=== PATIENT | male | born 1960 | race Caucasian/White ===

== ENCOUNTER 2021-05-31 11:51 | Outpatient (CLI) | payer BC, OTHER, SELFPAY ==
--- NOTE | ~2021-05-31 | MMUS_ITS ---
EXAMINATION: MM diagnostic mammo unilat RT, US breast RT complete HISTORY: Right breast lump TECHNIQUE: Right craniocaudal and bilateral MLO images. Spot right MLO, MLO and cc views. CAD analysi s was submitted and interpreted. High resolution complete right breast ultrasound on 4 quadrants and subareolar area was performed. COMPARISON: None BREAST PARENCHYMAL COMPOSITION: The breasts are heterogeneously dense, which may obscure small masses . FINDINGS: MAMMOGRAPHIC FINDINGS: There is asymmetric prominent right gynecomastia, measuring up to approximately 5.5 cm transverse, up to 4.1 cm depth and 4.1 cm vertical dimension. Patient's mass or architectural distortion, malignant calcification, skin thickening or retraction is detected. ULTRASOUND: Heterogeneous fibroglandular stroma is identified. No suspicious mass or suspicious shadowing is dete cted. IMPRESSION: 1. Right gynecomastia 2. No mammographic evidence of malignancy BI-RADS Category 2: Benign finding(s). Reviewed, dictated and finalized at location A. IMPRESSION: 1. Right gynecomastia 2. No mammographic evidence of malignancy BI-RADS Category 2: Benign finding(s).
== END 2021-05-31 11:52 | disposition home or self-care (01) ==
LOC: ANHIMG 11:52
PROVIDERS: PCP Family Medicine; Visit Provider Physician Assistant Medical
DX: N63.10 Unspecified lump in the right breast, unspecified quadrant (principal)
CPT/HCPCS: 76641; 77065

== ENCOUNTER 2021-11-30 08:04 | Outpatient (RCR) | payer BC, OTHER, SELFPAY | END 2022-02-28 23:59 | disposition home or self-care (01) | LOC: ANHVASCINF 08:04 | PROVIDERS: PCP Family Medicine; Visit Provider Internal Medicine Nephrology | DX: E87.1 Hypo-osmolality and hyponatremia (principal) | CPT/HCPCS: 36415; 82533; 96372; J0834 ==

== ENCOUNTER 2022-01-05 10:44 | Outpatient (CLI) | payer BC, OTHER, SELFPAY ==
--- NOTE | ~2022-01-05 | US_ITS ---
EXAMINATION: US venous doppler [facility] DATE: 01/05/2022 11:24 INDICATION: Venous thrombosis. TECHNIQUE: Grayscale ultrasound images without and with compression and Doppler ultrasound images of the bilateral lower extremity veins were obtained. COMPARISON: 03/05/2019 FINDINGS: The visualized portions of right common femoral vein, profunda (deep) femoral vein, femoral vein, pop liteal vein, posterior tibial veins, peroneal veins, lesser saphenous vein and greater saphenous vein outflow remain patent. The visualized portions of left common femoral vein, profunda femoral vein, femoral vein, popliteal v ein, posterior tibial veins, peroneal veins, lesser saphenous vein and greater saphenous vein outflow remain patent. IMPRESSION: 1. No deep venous thrombosis in either lower limb. Reviewed, dictated and finalized at location B.
== END 2022-01-05 10:45 | disposition home or self-care (01) ==
PROVIDERS: PCP Family Medicine; Visit Provider Physician Assistant Medical
DX: Z86.718 Personal history of other venous thrombosis and embolism (principal)
CPT/HCPCS: 93970

== ENCOUNTER 2022-04-12 09:13 | Outpatient (RCR) | payer BC, OTHER, SELFPAY ==
[2022-04-12 10:13] LABS: Cortisol Baseline 7.06 ug/dL
== END 2022-07-11 23:59 | disposition home or self-care (01) ==
LOC: ANHVASCINF 09:13
PROVIDERS: PCP Family Medicine; Visit Provider Internal Medicine Nephrology
DX: E87.1 Hypo-osmolality and hyponatremia (principal); R94.7 Abnormal results of other endocrine function studies
CPT/HCPCS: 36415; 82533; 96372; J0834

== ENCOUNTER 2022-04-28 07:23 | Outpatient (CLI) | payer BC, OTHER, SELFPAY ==
--- NOTE | ~2022-04-28 | CT_ITS ---
EXAMINATION: CT abdomen w con DATE: 04/28/2022 07:50 INDICATION: Adrenal cortical hypofunction. TECHNIQUE: Computed tomography (CT) of the abdomen and pelvis was performed with 100 cc Omnipaque 350 intravenous contrast. The dose-length product was 991.45 mGy-cm. Automated exposure control and iter ative reconstruction technique were employed. COMPARISON: None. FINDINGS: There is dependent atelectasis of the lung bases. Heart size normal. No significant pleural or pericardial effusion. There is a tiny subcentimeter cyst of the right hepatic lobe. The spleen, p ancreas, adrenal glands and kidneys are unremarkable. Gallbladder is present. There is atherosclerosi s without aneurysm. There is possible bladder wall thickening, although only partially visualized. No lymphadenopathy. Severe lumbar spondylosis. IMPRESSION: 1. Normal adrenal glands. 2: Possible bladder wall thickening, although only partially visualized. Correlate for symptoms of cy stitis. Reviewed, dictated and finalized at location A. IMPRESSION: 1. Normal adrenal glands. 2: Possible bladder wall thickening, although only partially visualized. Correl ate for symptoms of cystitis.
[2022-04-28 07:44] LABS: Estimated Glomerular Filt Rate > 60
== END 2022-04-28 07:24 | disposition home or self-care (01) ==
PROVIDERS: PCP Family Medicine; Visit Provider Internal Medicine Nephrology
DX: E27.40 Unspecified adrenocortical insufficiency (principal)
CPT/HCPCS: 74160; Q9967

== ENCOUNTER 2023-05-23 07:25 | Outpatient (CLI) | payer BC, OTHER, SELFPAY ==
[2023-05-23 09:01] LABS: Cortisol Baseline 8.31 ug/dL
== END 2023-05-23 07:26 | disposition home or self-care (01) ==
LOC: ANHOUTPT 07:26
PROVIDERS: PCP Family Medicine; Visit Provider Internal Medicine
DX: E87.1 Hypo-osmolality and hyponatremia (principal); Z68.42 Body mass index [BMI] 45.0-49.9, adult
CPT/HCPCS: 36415; 82533; 96372

== ENCOUNTER 2025-05-19 10:15 | Outpatient (CLI) | payer MEDICARE, OTHER, SELFPAY ==
--- NOTE | ~2025-05-19 | XR_ITS ---
XR lumbar spine 2-3V Indication: M47.816 - Spondylosis without myelopathy or radiculopathy... Comparison: None Findings: Remote compression fracture of L2 with loss of height 20%, no acute fracture or subluxation. Moderate to severe loss of disc height throughout. Soft tissues unremarkable Impression: No acute abnormality. Reviewed, dictated and finalized at location P. Impression: No acute abnormality.
--- OUTSIDE RECORDS SUMMARY | 2025-05-19 11:18 | XMS_ITS | Clinical Summary ---
Author Organization [facility] Address [facility] [place] [address] Care Team Providers Care Glass Worker Name Role Phone Unavailable Primary Care Provider Unavailabl e Social History Tobacco Use Types Packs/Day Years Used Date Smoking Tobacco: Never Assessed Sex and Gender Information Value Date Recorded Sex Assigned at Not on file Legal Sex Male 8:37 PM CDT Gender Identity Not on file Sexual Orientation Not on file Plan of Treatment Health Maintenance Due Date Last Done Comments Colorectal Cancer Screening Colonoscopy (10 Years) 1959 Hepatitis C 1977 DTaP, Tdap and Td Vaccines ( 1 - Tdap) 1978 Pneumococcal Vaccine: 50+ Ye ars (1 of 1 - PCV) 2009 Zoster Vaccines (1 of 2) 2009 COVID-19 Vaccine ( - 2023-2 5 season) 2025 Influenza Adult (#1) 2025 RSV Immunization or 60+ Years (1 - 1-dose 75+ series) 2034 Meningococcal B Vaccine Aged Out No l onger eligible based on patient's age to complete this topic Meningococcal Vaccine Aged Out No saurav devang eligible based on patient's age to complete this topic RSV Immunizations Under 20 Months Aged Out No longer eligible based on patient's age to complete this topic
--- OUTSIDE RECORDS SUMMARY | 2025-05-19 11:18 | XMS_ITS | Encounter Summary ---
Author Organization [facility] Address [address] [facility] [place] [address] Care Team Providers Care Informatics Developer Name Role Phone Sander Hutchinson MD Primary Care Provider [phone] Encounter Details Date Type Department Care Team (Late st Contact Info) Description 12/10/2019 Lab Requisition [facility] DermPath Lab [address] [facility], [place] [id number] Gloria Leonard DO [address] [facility] [address] [place] [address] Social History Tobacco Use Types Packs/Day Years Used Date Smoking Tobacco: Never Smokeless Tobacco: Never Alcohol Use Standard Drinks/Week Comments Yes 0 (1 standard drink = 0.6 oz pur e alcohol) Sex and Gender Information Value Date Recorded Sex Assigned at Not on file 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 Gender Identity Not on file Sexual Orientation Not on file documented as of this encounter Plan of Treatment Not on file documented as of this encounter Procedures Procedure Name Priority Date/Time Associated Diagnosis Comments DERMATOPATHOLOGY Routine 12/09/2019 12:0 0 AM CDT documented in this encounter Results * DERMATOPATHOLOGY (12/09/2019 12:00 AM CDT) Case Report Dermatopathology Report Case: [id number] Authorizing Provider: Gloria Leonard DO Collected: 12/09/2019 12:00 AM Ordering Location: [facility] DermPath Lab Received: 12/10/2019 11:28 AM Pathologist: Lary Quinonez MD Specimens: A) - Skin, left methodist B) - Skin, left post auricular C) - Skin, right low back 0 2:18 PM T DERMATOPATHOLOGY LABORATORY Final Diagnosis Specimen A. SKIN, left methodist: HYPERPLASTIC (HYPERTROPHIC) ACTINIC KERATOSIS; EXTENDING TO THE BASE OF THE SPECIMEN (L57.0) (see microscopic description and comment) Specimen B. SKIN, left post auricular: BENIGN VERRUCOUS KERATOSIS (L82.1) HEALING SKIN CHANGES (L90.5) Specimen C. SKIN, right low back: HYPERPLASTIC (HYPERTROPHIC) ACTINIC KERATOSIS (L57.0) 0 2:18 PM T DERMATOPATHOLOGY LABORATORY at 1418 CDT Clinical History A: AK vs NMSC, non-healing. B-C: R/O NMSC vs ISK, non-healing. 0 2:18 PM T DERMATOPATHOLOGY LABORATORY Gross Description Specimen A: Received is one formalin filled container labeled with the patient's name and designated left methodist. The specimen consists of a shave measuring 0u1f2of. Jar 0. Specimen B: Received is one formalin filled container labeled with the patient's name and designated left post auricular. The specimen consists of a shave measuring 7r3x0tb. Jar 0. Specimen C: Received is one formalin filled container labeled with the patient's name and designated right low back. The specimen consists of a shave measuring 5f7p5if. Jar 0. 0 2:18 PM T DERMATOPATHOLOGY LABORATORY Microscopic Description Specimen A. SKIN, left methodist: There is hyperkeratosis alternating with parakeratosis. There is focal epidermal hyperplasia with disorderly maturation of keratinocytes with nuclear pleomorphism confined to the lower half of the epidermis. This process extends to the base of the specimen. Additional deeper sections were obtained and reviewed. COMMENT: A squamous cell carcinoma cannot be ruled out. Specimen B. SKIN, left post auricular: Sections show hyperkeratosis, papillomatosis, hypergranulosis, and acanthosis. These histological findings can be seen in a verruca vulgaris or a seborrheic keratosis. There is focal epidermal hyperplasia beneath which there are vascular proliferation, fibroblasts, and an edematous stroma. Specimen C. SKIN, right low back: There is hyperkeratosis alternating with parakeratosis. There is epidermal hyperplasia with disorderly maturation of keratinocytes with nuclear pleomorphism confined to the lower half of the epidermis. 0 2:18 PM CDT DERMATOPATHOLOGY LABORATORY Disclaimer An external and internal positive and negative controls are appropriate for the histochemical, immunohistochemical and immunofluorescence stain(s) in this case (if any), except where stated explicitly. The performance characteristics of the stain(s) cited in this report were developed and its performance characteristic determined by the Dermatopathology Laboratory at [facility], directed by Dr. Javi Mistry. These tests need not be, and therefore are not, approved by the [place] Food and Drug Administration. The tests are used for clinical purposes. Billing Codes Specimen Charges Stain Charges 96760 46655 06736 1 1 1 0 2:18 PM CDT DERMATOPATHOLOGY LABORATORY Embedded Images 0 2:18 PM CDT DERMATOPATHOLOGY LABORATORY Pathology/Cytology TISSUE SPECIMEN FROM SKIN / Unknown 12/09/2019 12/10/2019 11:28 AM CDT Miscellaneous samples (specimen) TISSUE SPECIMEN FROM SKIN / Unknown 12/09/2019 12/10/2019 11:28 AM CDT Miscellaneous samples (specimen) TISSUE SPECIMEN FROM SKIN / Unknown 12/09/2019 12/10/2019 11:28 AM CDT Gloria Leonard DO LAB - PATHOLOGY/CYTOLOGY ORDERABLES Final Result DERMATOPATHOLOGY LABORATORY [facility] - Department of Dermatology [address] [place] [address], [address] [place] [address], [facility] [phone] documented in this encounter Visit Diagnoses Not on filedocumented in this encounter Care Teams Informatics Developer Relationship Specialty Start Date End Date Sander Hutchinson MD [address] [place] [address] PCP - General 02/03/15 documented as of this encounter
--- OUTSIDE RECORDS SUMMARY | 2025-05-19 11:18 | XMS_ITS | Encounter Summary ---
Author Organization [facility] Address [address] [facility] [place] [address] Care Team Providers Care Fisher Eel Spear Name Role Phone Sander Hutchinson MD Primary Care Provider [phone] Encounter Details Date Type Department Care Team (Late st Contact Info) Description 09/24/2024 Lab Requisition [facility] - DermPath Lab [address] 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 Gender Identity Not on file Sexual Orientation Not on file documented as of this encounter Plan of Treatment Not on file documented as of this encounter Procedures Procedure Name Priority Date/Time Associated Diagnosis Comments DERMATOPATHOLOGY Routine 09/24/2024 1:15 PM ASSISTANT PROFESSOR OF MUSIC documented in this encounter Results * DERMATOPATHOLOGY (09/24/2024 1:15 PM ASSISTANT PROFESSOR OF MUSIC) Case Report Dermatopathology Report Case: [id number] Authorizing Provider: Gloria Leonard DO Collected: 09/24/2024 01:15 PM Ordering Location: [facility] - Received: 09/26/2024 07:49 AM DermPath Lab Pathologist: Fanny Miller MD Specimens: A) - Skin, left cheek B) - Skin, mid back 12:40 PM [facility] DERMATOPATHOLOGY LABORATORY Final Diagnosis Specimen A. SKIN, left cheek: EPIDERMOID CYST, SUPERFICIAL PORTIONS OF (L72.0) (see microscopic description and comment) Specimen B. SKIN, mid back: SPONGIOTIC DERMATITIS WITH EOSINOPHILS (L30.8) (see microscopic description and comment) 12:40 PM [facility] DERMATOPATHOLOGY LABORATORY at 1240 ASSISTANT PROFESSOR OF MUSIC Clinical History A-B: R/O NMSC 12:40 PM [facility] DERMATOPATHOLOGY LABORATORY Gross Description Specimen A: Received is one formalin filled container labeled with the patient's name and designated left cheek. The specimen consists of a shave biopsy (2 pieces) measuring 4x4x1 and 4x3x1 mm. Jar 0. Specimen B: Received is one formalin filled container labeled with the patient's name and designated mid back. The specimen consists of a shave biopsy measuring 7x6x1 mm. Jar 0. 12:40 PM [facility] DERMATOPATHOLOGY LABORATORY Microscopic Description Specimen A. SKIN, left cheek: Within the superficially sampled dermis, there is a space lined by epithelium that resembles normal epidermis and the infundibular portion of the hair follicle. COMMENT: Given the superficial nature of the biopsy specimen, a deeper dermal process cannot be excluded. Specimen B. SKIN, mid back: There is focal parakeratosis and spongiosis. The dermis shows a superficial and deep, perivascular and interstitial infiltrate of lymphocytes and eosinophils. Many of the eosinophils are present in the papillary dermis and occasional eosinophils are noted within the epidermis. Periodic acid-Sebastián (PAS) stain fails to highlight fungal elements in the available sections. A hyatt-cytokeratin immunostain fails to demonstrate keratin-derived amyloid within the papillary dermis. COMMENT: The histological differential diagnosis includes contact dermatitis or a hypersensitivity reaction such as may be seen secondary to an arthropod bite or drug reaction. Urticarial bullous pemphigoid is least favored, however cannot be definitively excluded. Clinicopathologic correlation is recommended. 12:40 PM [facility] DERMATOPATHOLOGY LABORATORY Disclaimer An external and internal positive and negative controls are appropriate for the histochemical, immunohistochemical and immunofluorescence stain(s) in this case (if any), except where stated explicitly. The performance characteristics of the stain(s) cited in this report were developed and its performance characteristic determined by the Dermatopathology Laboratory at [facility], directed by Dr. Javi Mistry. These tests need not be, and therefore are not, approved by the [place] Food and Drug Administration. The tests are used for clinical purposes. Billing Codes Specimen Charges Stain Charges 29756 10294 1 1 57701 92976 1 1 5 12:40 PM ASSISTANT PROFESSOR OF MUSIC DERMATOPATHOLOGY LABORATORY Embedded Images 12:40 PM ASSISTANT PROFESSOR OF MUSIC DERMATOPATHOLOGY LABORATORY Pathology/Cytology TISSUE SPECIMEN FROM SKIN / Unknown 09/24/2024 1:15 PM ASSISTANT PROFESSOR OF MUSIC 09/26/2024 7:49 AM ASSISTANT PROFESSOR OF MUSIC Miscellaneous samples (specimen) TISSUE SPECIMEN FROM SKIN / Unknown 09/24/2024 1:15 PM ASSISTANT PROFESSOR OF MUSIC 09/26/2024 7:49 AM ASSISTANT PROFESSOR OF MUSIC Gloria Leonard DO LAB - PATHOLOGY/CYTOLOGY ORDERABLES Final Result DERMATOPATHOLOGY LABORATORY [facility] - Department of Dermatology [facility] Medicine [address] [place] [address], [address] [phone] documented in this encounter Visit Diagnoses Not on filedocumented in this encounter Care Teams Fisher Eel Spear Relationship Specialty Start Date End Date Sander Hutchinson MD [address] [place] [phone] PCP - General 02/03/15 documented as of this encounter
--- OUTSIDE RECORDS SUMMARY | 2025-05-19 11:18 | XMS_ITS | Encounter Summary ---
Author Organization [facility] Address [address] [facility] [place] [address] Care Team Providers Care Yeast Pusher Name Role Phone Sander Hutchinson MD Primary Care Provider [phone] Encounter Details Date Type Department Care Team (Late st Contact Info) Description 01/22/2024 Lab Requisition [facility] - DermPath Lab [address] [facility], [place] [phone] Gloria Leonard DO [address] [facility] [address] [place] [address] Social History Tobacco Use Types Packs/Day Years Used Date Smoking Tobacco: Never Smokeless Tobacco: Never Alcohol Use Standard Drinks/Week Comments Yes 0 (1 standard drink = 0.6 oz pur e alcohol) Sex and Gender Information Value Date Recorded Sex Assigned at Not on file 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 Gender Identity Not on file Sexual Orientation Not on file documented as of this encounter Plan of Treatment Not on file documented as of this encounter Procedures Procedure Name Priority Date/Time Associated Diagnosis Comments DERMATOPATHOLOGY Routine 01/22/2024 4:11 PM CDT documented in this encounter Results * DERMATOPATHOLOGY (01/22/2024 4:11 PM CDT) Case Report Dermatopathology Report Case: [id number] Authorizing Provider: Gloria Leonard DO Collected: 01/22/2024 04:11 PM Ordering Location: [facility] - Received: 01/23/2024 10:25 AM DermPath Lab Pathologist: Virginie Marquez MD Specimen: Skin, left forearm 4 5:24 PM CDT DERMATOPATHOLOGY LABORATORY Final Diagnosis Specimen A. SKIN, left forearm: DERMAL SCAR RESIDUAL SQUAMOUS CELL CARCINOMA NOT IDENTIFIED (L90.5) 4 5:24 PM CDT DERMATOPATHOLOGY LABORATORY at 1724 CDT Clinical History WLE bx proven SCCIS 4 5:24 PM CDT DERMATOPATHOLOGY LABORATORY Gross Description Specimen A: Received is one formalin filled container labeled with the patient's name and designated left forearm. The specimen consists of a non-oriented ellipse of skin measuring 29x74y8 mm. The epidermal surface is unremarkable. The margin is inked green. The 12 o'clock and 6 o'clock tips are submitted in cassette 1. The remainder of the ellipse is serially sectioned and submitted in cassette 2. Jar 0. 4 5:24 PM CDT DERMATOPATHOLOGY LABORATORY Microscopic Description Specimen A. SKIN, left forearm: There are fibroblasts and collagen bundles oriented parallel to the skin surface. There are elongated blood vessels, some of which are oriented perpendicular to the skin surface. No residual squamous cell carcinoma is identified. 4 5:24 PM CDT DERMATOPATHOLOGY LABORATORY Disclaimer An external and internal positive and negative controls are appropriate for the histochemical, immunohistochemical and immunofluorescence stain(s) in this case (if any), except where stated explicitly. The performance characteristics of the stain(s) cited in this report were developed and its performance characteristic determined by the Dermatopathology Laboratory at [facility], directed by Dr. Javi Mistry. These tests need not be, and therefore are not, approved by the [place] Food and Drug Administration. The tests are used for clinical purposes. Billing Codes Specimen Charges Stain Charges 34285 1 4 5:24 PM CDT DERMATOPATHOLOGY LABORATORY Embedded Images 4 5:24 PM CDT DERMATOPATHOLOGY LABORATORY Pathology/Cytolo gy TISSUE SPECIMEN FROM SKIN / Unknown 01/22/2024 4:11 PM CDT 01/23/2024 10:25 AM CDT us Gloria Leonard DO LAB - PATHOLOGY/CYTOLOGY ORDERABLES Final Result DERMATOPATHOLOGY LABORATORY [facility] - Department of Dermatology [address], [address] [phone] documented in this encounter Visit Diagnoses Not on filedocumented in this encounter Care Teams Yeast Pusher Relationship Specialty Start Date End Date Sander Hutchinson MD [address] [place] [address] PCP - General 02/03/15 documented as of this encounter
--- OUTSIDE RECORDS SUMMARY | 2025-05-19 11:18 | XMS_ITS | Clinical Summary ---
Author Organization [facility] Address [address] [place] [address] Care Team Providers Care Biller Name Role Phone Sander Hutchinson MD Primary Care Provider [phone] Source Comments [facility],non-owned Affiliates and Associated Physician Practices is amultiple site organization consisting of ambulatory clinics and hospital sitesin [place], [place], [place] and [place]. This disclosure is being madepursuant to the Care Everywhere program and may not contain all information available regarding this patient. Last updated 18.[facility] Allergies No known active allergies Medications * Be aware that medications may not be up to date on this document. Alwaysverify current medications with the patient. amLODIPine (NORVASC) 2.5 MG tablet TK 1 T PO QAM 0 11/22/2018 Active ELIQUIS 5 MG tablet TK 1 T PO BID 0 05/22/2019 Active levothyroxine (SYNTHROID) 88 MCG tablet TK 1 T PO QD 2 04/02/2019 Active Family History Medical History Relation Name Comments Asthma Neg Hx CVA Neg Hx Cancer - Breast Neg Hx Cancer - Other Neg Hx Cancer - Skin, Melanoma Neg Hx Cancer - Skin, Non Melanoma Neg Hx Eczema Neg Hx Hemophilia Neg Hx Psoriasis Neg Hx Social History Tobacco Use Types Packs/Day Years Used Date Smoking Tobacco: Never Smokeless Tobacco: Never Alcohol Use Standard Drinks/Week Comments Yes 0 (1 standard drink = 0.6 oz pur e alcohol) Sex and Gender Information Value Date Recorded Sex Assigned at Not on file 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 Gender Identity Not on file Sexual Orientation Not on file Last Filed Vital Signs Vital Sign Reading Time Taken Comments Blood Pressure 140/80 10/03/2019 11:01 AM CARD CHECKER Pulse 100 10/03/2019 11:01 AM CARD CHECKER Temperature - - Respiratory Rate - - Oxygen Saturation 97% 10/03/2019 11:01 AM CARD CHECKER Inhaled Oxygen Concentration - - Weight 108.9 kg (240 lb) 10/03/2019 8:14 AM CARD CHECKER Height 167.6 cm (5' 6) 10/03/2019 8:14 AM CARD CHECKER Body Mass Index 38.74 10/03/2019 8:14 AM CARD CHECKER Plan of Treatment Health Maintenance Due Date Last Done Comments COLOGUARD (AGES 45-75) - COLON CA SCREENING 1959 COLON MONITORING 1959 COLONOSCOPY - COLON CA SCREENING 1959 CT COLONOGRAPHY - COLON CA SCREENING 1959 Colorectal Cancer Screening 1959 FIT - COLON CA SCREENING 1959 FLEX SIG - COLON CA SCREENING 1959 LIPID TESTING 1959 HIV SCREENING 1974 HEPATITIS C SCREENING 05/24/1977 DTAP/TDAP/TD VACCINES (1 - Tdap) 1978 PNEUMOCOCCAL VACCINE 50+ (1 of 1 - PCV) 2009 ZOSTER VACCINE (1 of 2) 2009 SCREENING FOR DIABETES 10/03/2019 DEPRESSION SCREENING 08/07/2024 MEDICARE AWV CALENDAR YEAR 2024 COVID-19 VACCINE ( - 2023- season) 2025 INFLUENZA VACCINE (#1) 2025 7, 04/16/2016, 05/09/2015, Additional history exists Respiratory Syncytial Virus (RSV) Vaccine Pt: or over 60 yrs (1 - 1-dose 75+ series) 2034 HEPATITIS B VACCINE Aged Out No longe r eligible based on patient's age to complete this topic HIB VACCINE Aged Out No longer eligi ble based on patient's age to complete this topic HPV VACCINE Aged Out No longer eligi ble based on patient's age to complete this topic MENINGOCOCCAL (Group B) VACCINE SHARED DECISION-MAKING Aged Out No longer eligible based on patient's age to complete this topic MENINGOCOCCAL GROUPS A/C/Y/W VACCINE Aged Out No longer eligible based on patient's age to complete this topic Insurance ANTHEM ANTHEM MEDICARE UHC MANAGED MEDICARE ADV Care Teams Biller Relationship Specialty Start Date End Date Sander Hutchinson MD [address] [place] [address] PCP - General 02/03/15
--- OUTSIDE RECORDS SUMMARY | 2025-05-19 11:18 | XMS_ITS | Encounter Summary ---
Author Organization [facility] Address [address] [place] [address] Care Team Providers Care Stocking And Box Shop Supervisor Name Role Phone Sander Hutchinson MD Primary Care Provider [phone] Encounter Details Date Type Department Care Team (Late st Contact Info) Description 12/07/2023 Lab Requisition [facility] - DermPath Lab [address] [facility], [place] [id number] Gloria Leonard DO [address] 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 Gender Identity Not on file Sexual Orientation Not on file documented as of this encounter Plan of Treatment Not on file documented as of this encounter Procedures Procedure Name Priority Date/Time Associated Diagnosis Comments DERMATOPATHOLOGY Routine 12/07/2023 10:4 6 AM CDT documented in this encounter Results * DERMATOPATHOLOGY (12/07/2023 10:46 AM CDT) Case Report Dermatopathology Report Case: [id number] Authorizing Provider: Gloria Leonard DO Collected: 12/07/2023 10:46 AM Ordering Location: [facility] - Received: 12/08/2023 09:46 AM DermPath Lab Pathologist: Lary Quinonez MD Specimen: Skin, left forearm 1:11 PM T DERMATOPATHOLOGY LABORATORY Final Diagnosis Specimen A. 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 1:11 PM CDT DERMATOPATHOLOGY LABORATORY Gross Description Specimen A: Received is one formalin filled container labeled with the patient's name and designated left forearm. The specimen consists of a shave biopsy measuring 6x5x1 mm. Jar 0. 1:11 PM T DERMATOPATHOLOGY LABORATORY Microscopic Description Specimen A. SKIN, left forearm: The epidermis shows parakeratosis, full thickness disorderly maturation of keratinocytes, mitoses at different levels, and dyskeratotic cells. 1:11 PM T DERMATOPATHOLOGY LABORATORY Disclaimer An external and internal positive and negative controls are appropriate for the histochemical, immunohistochemical and immunofluorescence stain(s) in this case (if any), except where stated explicitly. The performance characteristics of the stain(s) cited in this report were developed and its performance characteristic determined by the Dermatopathology Laboratory at [facility], directed by Dr. Javi Mistry. These tests need not be, and therefore are not, approved by the [place] Food and Drug Administration. The tests are used for clinical purposes. Billing Codes Specimen Charges Stain Charges 32819 1 1:11 PM CDT DERMATOPATHOLOGY LABORATORY Embedded Images 1:11 PM CDT DERMATOPATHOLOGY LABORATORY Pathology/Cytolo gy TISSUE SPECIMEN FROM SKIN / Unknown 12/07/2023 10:46 AM CDT 12/08/2023 9:46 AM CDT us Gloria Leonard DO LAB - PATHOLOGY/CYTOLOGY ORDERABLES Final Result DERMATOPATHOLOGY LABORATORY [facility] - Department of Dermatology [address], [address] [phone] documented in this encounter Visit Diagnoses Not on filedocumented in this encounter Care Teams Stocking And Box Shop Supervisor Relationship Specialty Start Date End Date Sander Hutchinson MD [address] [place] [address] PCP - General 02/03/15 documented as of this encounter
--- OUTSIDE RECORDS SUMMARY | 2025-05-19 11:18 | XMS_ITS | Clinical Summary ---
Author Organization [facility] Address [address] [place] [id number] Care Team Providers Care Podiatry Doctor Name Role Phone Sander Hutchinson MD Primary Care Provider [phone] Allergies No known active allergies Medications amLODIPine (NORVASC) 5 mg tablet Take 1 tablet (5 mg total) by mouth daily 2 Active Eliquis 5 mg tablet Take 1 tablet (5 mg total) by mouth 2 (two) times a day 2 Active furosemide (LASIX) 20 mg tablet Take 1 tablet (20 mg total) by mouth daily 1 Active levothyroxine (SYNTHROID) 150 mcg tablet Take 1 tablet (150 mcg total) by mouth daily 2 Active doxycycline (VIBRAMYCIN) 100 mg capsule Take 100 mg by mouth daily Active esomeprazole DR (NexIUM) 20 mg capsule As needed 2 Active prednisoLONE acetate (PRED FORTE) 1 % ophthalmic suspension Administer 1 drop into the left eye 2 (two) times a day 5 mL 11 2 Active Additional Information Patient not taking.Reported on 02/13/2023 irbesartan (AVAPRO) 150 mg tablet Take 1 tablet (150 mg total) by mouth nightly 30 tablet 2 Active Active Problems Problem Noted Date Diagnosed Date Pterygium eye, left 11/01/2021 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 Previously in Had been treated with IFN for about 5 months and just ran out about 8 days ago TODAY: -MAGGIE over cornea resolved With only residual ant stromal haze today, pseudopterygium remains stable infratemporally with lipid deposition. No evident progression compared with the photo in patient's cell phone (after IFN treatment) PLAN: -Defer IFN A2B QID OS for now due to IFN shortage -Continue AT as needed -RTC 3 months for K check, sooner prn Surgical History Surgery Date Site/Laterality Comments REPLACEMENT TOTAL KNEE 08/07/2015 - 08/06/2016 Left EYE SURGERY 08/07/2017 - 08/06/2018 Bilateral Medical History Medical History Date Comments Hypertension Family History Medical History Relation Name Comments Hypertension Brother Hypertension Mother Relation Name Status Comments Brother Mother Social History Tobacco Use Types Packs/Day Years Used Date Smoking Tobacco: Never Smokeless Tobacco: Never Personal Safety Answer Date Recorded Getting School Help Needed Not on file 10/21 Sex and Gender Information Value Date Recorded Sex Assigned at Not on file 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 [employer] Gender Identity Not on file Sexual Orientation Not on file Obstetrics History Plan of Treatment Health Maintenance Due Date Last Done Comments Colon Cancer Screening-Colonoscopy 1959 Depression Screening 1959 Fall Risk Assessment 1959 Hepatitis C Screening 1959 Prostate Cancer Screening-PSA 1959 DTaP/Tdap/Td Vaccine (1 - Tdap) 1970 Hepatitis B Screening 1977 Pneumococcal vaccine 65+ (1 of 1 - PCV) 2009 Zoster Vaccine (1 of 2) 2009 Abdominal Aortic Aneurysm (AAA) Screen 2024 Well Visit 65+ 2024 Influenza Vaccine (#1) 2025 Insurance [facility] Care Teams Podiatry Doctor Relationship Specialty Start Date End Date Sander Hutchinson MD PCP - General Family Medicine 10/04/21
--- OUTSIDE RECORDS SUMMARY | 2025-05-19 11:18 | XMS_ITS | Encounter Summary ---
Author Organization [facility] Address [address] [facility] [place] [address] Care Team Providers Care Glove Turner And Former Name Role Phone Sander Hutchinson MD Primary Care Provider [phone] Encounter Details Date Type Department Care Team (Late st Contact Info) Description 01/09/2019 Lab Requisition [facility] Care DermPath Lab [address] [facility] [place] [phone] Aleisha Rhodes MD [address] [facility] [address] [place] [address] Social History Tobacco Use Types Packs/Day Years Used Date Smoking Tobacco: Never Assessed Sex and Gender Information Value Date Recorded Sex Assigned at Not on file 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 Gender Identity Not on file Sexual Orientation Not on file documented as of this encounter Plan of Treatment Not on file documented as of this encounter Procedures Procedure Name Priority Date/Time Associated Diagnosis Comments DERMATOPATHOLOGY Routine 01/08/2019 12:0 0 AM CDT documented in this encounter Results * DERMATOPATHOLOGY (01/08/2019 12:00 AM CDT) Case Report Dermatopathology Report Case: [id number] Authorizing Provider: Aleisha Rhodes MD Collected: 01/08/2019 12:00 AM Pathologist: Sarabjit Mistry MD Received: 01/09/2019 09:33 AM Specimens: A) - Skin, left jaw B) - Skin, right nasal tip 9 3:51 PM CDT DERMATOPATHOLOGY LABORATORY Final Diagnosis Specimen A. 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 SKIN, right nasal tip: CHRONIC PERIFOLLICULITIS (L73.8) (see microscopic description) 3:51 PM T DERMATOPATHOLOGY LABORATORY at 1551 CDT Clinical History A-B: R/O BCC, SCC, irritated, non-healing. Check margins. 3:51 PM CDT DERMATOPATHOLOGY LABORATORY Gross Description Specimen A: Received is one formalin filled container labeled with the patient's name and designated left jaw. The specimen consists of a shave measuring [id number]. The margin is inked green. Jar 0. Specimen B: Received is one formalin filled container labeled with the patient's name and designated right nasal tip. The specimen consists of a shave measuring [id number]. The margin is inked green. Jar 0. 3:51 PM CDT DERMATOPATHOLOGY LABORATORY Microscopic Description Specimen A. SKIN, left jaw: The epidermis shows parakeratosis, full thickness disorderly maturation of keratinocytes, mitoses at different levels, and dyskeratotic cells. This lesion is present at the margin of the specimen. Specimen B. SKIN, right nasal tip: Sections show a perifollicular lymphohistiocytic infiltrate. There is no evidence of epithelial dysplasia or malignancy in the sections examined. 3:51 PM T DERMATOPATHOLOGY LABORATORY Disclaimer An external [...] purposes. Billing Codes Specimen Charges Stain Charges 08777 89932 1 1 3:51 PM CDT DERMATOPATHOLOGY LABORATORY Embedded Images 3:51 PM CDT DERMATOPATHOLOGY LABORATORY Pathology/Cytology TISSUE SPECIMEN FROM SKIN / Unknown 01/08/2019 01/09/2019 9:33 AM CDT Miscellaneous samples (specimen) TISSUE SPECIMEN FROM SKIN / Unknown 01/08/2019 01/09/2019 9:33 AM CDT Aleisha Rhodes MD LAB - PATHOLOGY/CYTOLOGY OR DERABLES Final Result DERMATOPATHOLOGY LABORATORY [facility] - Department of Dermatology [address] [place] [address], [address]th Floor Lab [address] [phone] documented in this encounter Visit Diagnoses Not on filedocumented in this encounter Care Teams Glove Turner And Former Relationship Specialty Start Date End Date Sander Hutchinson MD [address] [place] [address] PCP - General 02/03/15 documented as of this encounter
--- OUTSIDE RECORDS SUMMARY | 2025-05-19 11:18 | XMS_ITS | Clinical Summary ---
Author Organization [facility] Address [address] [place] [phone] Phone Care Team Providers Care Warehouse Processor Name Role Phone Sander Hutchinson MD Primary Care Provider [phone] Allergies No known active allergies Medications Eliquis 5 MG tablet Take 5 mg by mouth 2 (two) times a day 10/15/2021 Active esomeprazole (NexIUM) [address] capsule As needed 08/24/2021 Active furosemide (LASIX) 20 MG tablet Take 20 mg by mouth 1 (one) time each day in the morning 10/18/2021 Active levothyroxine (SYNTHROID) 150 MCG tablet Take 150 mcg by mouth 1 (one) time each day 09/30/2021 Active doxycycline (VIBRAMYCIN) 100 MG capsule Take 100 mg by mouth 1 (one) time each day Take with at least 8 ounces (large glass) of water, do not lie down for 30 minutes after Active irbesartan (AVAPRO) 150 MG tablet Take 1 tablet (150 mg total) by mouth every night 30 tablet 11 03/03/2022 Active Active Problems Problem Noted Date Diagnosed Date Hyposmolality and/or hyponatremia 10/27/2021 Nonspecific abnormal results of function study o f kidney 10/27/2021 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 Family History Medical History Relation Comments End stage renal disease Brother Kidney disease Sister Relation Status Comments Brother Sister Social History Tobacco Use Types Packs/Day Years Used Date Smoking Tobacco: Never Smokeless Tobacco: Never Alcohol Use Standard Drinks/Week Comments Not Currently 0 (1 standard drink = 0.6 oz pur e alcohol) heavy in past Sex and Gender Information Value Date Recorded Sex Assigned at Not on file Legal Sex Male 12:40 PM [facility] Gender Identity Not on file Sexual Orientation Not on file Last Filed Vital Signs Vital Sign Reading Time Taken Comments Blood Pressure 160/80 03/03/2022 10:23 AM CDT Pulse 84 03/03/2022 10:23 AM CDT Temperature 37 C (98.6 F) 03/03/2022 10:23 AM CDT Respiratory Rate - - Oxygen Saturation - - Inhaled Oxygen Concentration - - Weight 123 kg (271 lb) 03/03/2022 10:23 AM CDT Height 165.1 cm (5' 5) 03/03/2022 10:23 AM CDT Body Mass Index 45.1 03/03/2022 10:23 AM CDT Plan of Treatment Health Maintenance Due Date Last Done Comments Pneumococcal PPSV23/PCV13 65 + Years / Low and Medium Risk (1 of 2 - PCV) 2009 Influenza Vaccine (#1) 2025 Insurance [facility] Care Teams Warehouse Processor Relationship Specialty Start Date End Date Sander Hutchinson MD [address] [place] [address] PCP - General Family Medicine 10/11/21
== END 2025-05-19 10:16 | disposition home or self-care (01) ==
PROVIDERS: PCP Family Medicine; Visit Provider Physician Assistant Medical
DX: M47.816 Spondylosis without myelopathy or radiculopathy, lumbar region (principal)
CPT/HCPCS: 72100